=== PATIENT | male | born 1975 | race African-American/Black ===

== ENCOUNTER 2021-09-04 20:28 | Emergency (ER) ==
[~2021-09-04] VITALS: Ht 188 cm; Wt 108.2 kg
[2021-09-04 20:28] VITALS: BP 141/77
== END 2021-09-04 22:52 | disposition left against medical advice (07) ==
LOC: M ED 20:28
DX: Z53.21 Procedure and treatment not carried out due to patient leaving prior to being seen by health care provider (principal)

== ENCOUNTER 2021-09-28 21:40 | Emergency (ER) ==
[~2021-09-28] VITALS: Ht 188 cm; Wt 107.8 kg
[2021-09-28 21:42] VITALS: BP 135/66
== END 2021-09-29 01:10 | disposition left against medical advice (07) ==
LOC: M ED 21:40
DX: Z53.29 Procedure and treatment not carried out because of patient's decision for other reasons (principal)

== ENCOUNTER 2021-09-29 01:38 | Observation (INO) | payer OTHER, SELFPAY ==
[~2021-09-29] VITALS: Ht 188 cm; Wt 114.0 kg
[2021-10-01 06:15] VITALS: BP 136/85
[2021-10-01] MEDS ORDERED: OXYB5TAB10 PO (07:36)
[2021-10-01] MEDS ORDERED: TRAM50TA2 PO (09:11)
== END 2021-10-01 12:51 | disposition home or self-care (01) ==
LOC: M ED 01:38 → M ED INP 01:39 → ENRESERV 13:42 → M MSPAV 15:37
PROVIDERS: ADMIT Internal Medicine; ATTEND Internal Medicine
DX: N20.2 Calculus of kidney with calculus of ureter (principal); N13.39 Other hydronephrosis; R00.1 Bradycardia, unspecified; N17.9 Acute kidney failure, unspecified; N50.812 Left testicular pain; R35.0 Frequency of micturition; R30.0 Dysuria; Z87.442 Personal history of urinary calculi
CPT/HCPCS: 36415; 52356; 74176; 74420; 76705; 76870; 80047; 80048; 80053; 81001; 82365; 83690; 83735; 85025; 85027; 87631; 88300; 93005; 93976; 96361; 96374; 96375; 99285; C1769; C2617; J0131; J0690; J1100; J1885; J2250; J2270; J2405; Q9961